=== PATIENT | male | born 1955 | race Caucasian/White ===

== ENCOUNTER 2016-05-18 23:50 | Emergency (ER) | payer OTHER ==
[2016-05-18] MEDS ORDERED: Diphtheria,Pertussis(Acell),Tetanus Vaccine 0.5 ML SDV inactive IM ONE (23:53)
[2016-05-18] MEDS ORDERED: Lidocaine 1% with EPINEPHrine 1:100,000 20 ML MDV INJECT ONE (23:54)
[2016-05-18 23:57] VITALS: BP 188/100
[2016-05-19] MEDS ORDERED: Acetaminophen 325 MG Tab PO STA (00:12)
--- NOTE | 2016-05-19 00:43 | EDM.PDOC ---
ED HPI HEAD INJURY - General Chief Complaint: Head Injury Stated Complaint: Head laceration Time Seen by Provider: 05/18/16 23:52 Source of Information: Reports: Patient History Limitations: Reports: No limitations - History of Present Illness INITIAL COMMENTS - FREE TEXT/NARRATIVE: The patient [place] and he walked into his trailer and hit his head on the gate. He has a 12cm horseshoe laceration to the top of his head. He has no LOC. He has no nausea or vomiting. He has no numbness or weakness. His tetanus is not up to date. Timing/Duration: Reports: Minutes: Location: Reports: other (Top of his head) Quality: Reports: sharp Severity: moderate Place of Occurrence: work Improves with: none Worsens with: none Context: Reports: other (walked into a cattle gate) Associated Symptoms: Reports: no other symptoms - Related Data Allergies/ADRs: Allergies Allergy/AdvReac Type Severity Reaction Status Date / Time No Known Allergies Allergy Verified 05/18/16 23:54 Home Meds: Home Meds . [No Known Home Meds] 05/18/16 [History] Past Medical History - Past Health History Medical/Surgical History: Denies Medical/Surgical History Social & Family History - Tobacco Use Smoking Status *Q: Never Smoker - Caffeine Use Caffeine Use: Reports: None - Recreational Drug Use Recreational Drug Use: No ED ROS GENERAL - Review of Systems Review Of Systems: See Below Constitutional: Reports: no symptoms HEENT: Reports: Other (laceration to his scalp) Respiratory: Reports: No Symptoms Cardiovascular: Reports: No symptoms Endocrine: Reports: no symptoms GI/Abdominal: Reports: No symptoms : Reports: no symptoms Musculoskeletal: Reports: no symptoms ED EXAM, HEAD INJURY - Physical Exam Exam: See Below Exam Limited By: No limitations General Appearance: alert, no apparent distress Head: other (12 cm horse shoe shaped laceration to the top of the head) Ears: normal external exam Nose: normal inspection Respiratory: no respiratory distress Neurologic: no motor/sensory deficits, alert, oriented x 3 ED LACERATION/WOUND & ANGELES PROC - Laceration/Wound Repair Head Lac/wound length in cm: 12 Appearance: subcutaneous, irregular, clean Anesthetic type: local Local anesthesia - Lidocaine (Xylocaine): 1% with epi Skin prep: saline Exploration/Debridement/Repair: wound explored, in a bloodless field, explored to base Closed with: sutures Suture size: 3-0 # of sutures: 15 Suture type: nylon, interrupted, simple Tetanus status addressed: Yes Complications: No Course - Vital Signs Last Recorded V/S: Last Vital Signs Temp 98 F 05/18/16 23:51 Pulse 90 05/18/16 23:51 Resp 15 05/18/16 23:51 BP 188/100 H 05/18/16 23:51 Pulse Ox 96 05/18/16 23:51 - Orders/Labs/Meds Orders: Active Orders 24 hr Category Date Time Status Vaccines to be Administered [RC] PER UNIT ROUTINE Care 05/18/16 23:53 Active Meds: Medications Discontinued Medications Generic Name Dose Route Start Last Admin Trade Name Ann PRN Reason Stop Dose Admin Acetaminophen 975 mg 05/19/16 00:12 05/19/16 00:15 Tylenol PO 05/19/16 00:13 975 mg NOW STA Administration Diphtheria/Tetanus/Acell Pertussis 0.5 ml 05/18/16 23:53 05/18/16 23:55 Boostrix IM 05/18/16 23:54 0.5 ml .ONCE ONE Administration Lidocaine/Epinephrine 20 ml 05/18/16 23:54 05/19/16 00:01 Xylocaine 1% With Epinephrine 1:100,000 INJECT 05/18/16 23:55 20 ml ONETIME ONE Administration - Re-Assessments/Exams Free Text/Narrative Re-Assessment/Exam: 05/19/16 00:42 We up dated his tetanus. The wound did not require layer closure. Departure - Departure Time of Disposition: 00:45 Disposition: Home, Self-Care 01 Condition: good Clinical Impression: Laceration of scalp Qualifiers: Encounter type: initial encounter Qualified Code(s): S01.01XA - Laceration without foreign body of scalp, initial encounter Forms: ED Department Discharge Additional Instructions: Wash the wound with warm soapy water 2 times per day and apply antibiotics after. Have the sutures removed in 7 to 10 days. Watch for any sign of infection such as redness, pain, drainage or swelling. - My Orders Last 24 Hours: My Active Orders 05/18/16 23:53 Vaccines to be Administered [RC] PER UNIT ROUTINE - Assessment/Plan Last 24 Hours: My Active Orders 05/18/16 23:53 Vaccines to be Administered [RC] PER UNIT ROUTINE
== END 2016-05-19 00:50 | disposition home or self-care (01) ==
LOC: JD.ED 23:50
DX: S01.01XA Laceration without foreign body of scalp, initial encounter (principal); Z23 Encounter for immunization; W22.8XXA Striking against or struck by other objects, initial encounter; Y92.89 Other specified places as the place of occurrence of the external cause; Y99.0 Civilian activity done for income or pay
CPT/HCPCS: 12004; 90471; 99283; A9270; 90715; 99282-25